=== PATIENT | female | born 1950 | race African-American/Black ===

== ENCOUNTER 2023-10-30 16:45 | Outpatient (CLI) | payer MEDICARE, MEDICAID, SELFPAY | END 2023-10-30 16:46 | disposition home or self-care (01) | LOC: AMB 11-07 16:34 | PROVIDERS: PCP Obstetrics & Gynecology; Visit Provider Student in an Organized Health Care Education/Training Program | DX: F03.90 Unspecified dementia, unspecified severity, without behavioral disturbance, psychotic disturbance, mood disturbance, and anxiety (principal) | CPT/HCPCS: A0425; A0428 ==